=== PATIENT | male | born 1975 | race African-American/Black ===

== ENCOUNTER 2016-08-15 13:17 | Inpatient (IN) | payer OTHER ==
[2016-08-15 18:52] VITALS: BMI 23.0
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
[2016-08-15] MEDS ORDERED: P-EPHED 60MG/TRIPROLIDI 2.5MG TABLET PO PRN (20:42)
[2016-08-15] MEDS ORDERED: guaiFENesin/D-METHORPHAN HB 10 ML UNIT-DOSE CUPS PO PRN (20:42)
[2016-08-15] MEDS ORDERED: LOPERAMIDE HCL 2 MG CAPSULE PO PRN (20:42)
[2016-08-15] MEDS ORDERED: MAG HYDROX/AL HYDROX/SIMETH 30 ML UNIT-DOSE CUP PO PRN (20:42)
[2016-08-15] MEDS ORDERED: MAGNESIUM HYDROX 2400MG/30ML ORAL SUSPENSION 30 ML CUP PO PRN (20:42)
[2016-08-15] MEDS ORDERED: hydrOXYzine PAMOATE 50 MG CAPSULE (FP) PO PRN (20:42)
[2016-08-15] MEDS ORDERED: chlordiazePOXIDE HCL 25 MG CAPSULE PO ONE (20:42)
[2016-08-15] MEDS ORDERED: MAGNESIUM CITRATE 300 ML BOTTLE PO PRN (20:42)
[2016-08-15] MEDS ORDERED: MENTHOL/PHENOL 1 EACH UD MM PRN (20:42)
[2016-08-15] MEDS ORDERED: chlordiazePOXIDE HCL 25 MG CAPSULE PO PRN (20:42)
[2016-08-15] MEDS ORDERED: LORATADINE 10 MG TABLET PO SCH (20:45)
[2016-08-15] MEDS: THIAMINE HCL 100 MG TABLET (FP) PO SCH (22:52)
[2016-08-15] MEDS: diphenhydrAMINE HCL 50 MG CAPSULE PO PRN (22:53)
[2016-08-15] MEDS: chlordiazePOXIDE HCL 25 MG CAPSULE PO SCH (22:53)
[2016-08-15 23:08] LABS: URINE APPEARANCE CLEAR; URINE BILIRUBIN NEGATIVE (NEGATIVE); URINE COLOR LTYELLOW; URINE GLUCOSE (UA) NEGATIVE (NEGATIVE); URINE KETONE NEGATIVE (NEGATIVE); URINE NITRITE NEGATIVE (NEGATIVE); URINE PROTEIN NEGATIVE (NEGATIVE); URINE UROBILINOGEN NEGATIVE E.U./dl (0.2-1.0)
[2016-08-15 23:10] LABS: URINE BLOOD 1+ (NEGATIVE); URINE LEUK ESTERASE 1+ (NEGATIVE)
[2016-08-15 23:17] LABS: URINE HYALINE CAST 1 /lpf; URINE MUCUS RARE; URINE RBC 10 /hpf (0-3); URINE WBC 41 /hpf (3-5)
[2016-08-16] MEDS: chlordiazePOXIDE HCL 25 MG CAPSULE PO SCH ×4 (06:15→22:18)
[2016-08-16 10:21] LABS: MCHC 33.8 g/dl (32.0-35.9); MEAN CELL VOLUME 100.6 fl (80-96); MEAN PLT VOLUME 8.2 fl (7.5-11.1); PLATELET COUNT 255 K/MM3 (134-434); RDW 13.9 % (11.9-15.9); WHITE BLOOD COUNT 7.6 K/mm3 (4.0-10.0)
[2016-08-16] MEDS: PRENATAL VITAMINS W/ FOLIC ACID TABLET (FP) PO SCH (10:30)
[2016-08-16] MEDS: IBUPROFEN 400 MG TABLET (FP) PO PRN (10:32)
[2016-08-16 10:34] LABS: ALBUMIN 4.1 g/dl (3.4-5.0); ANION GAP 8 (8-16); CALCIUM 9.4 mg/dL (8.5-10.1); CO2 27 mmol/L (21-32); COCKROFT - GAULT 98.2; GLUCOSE,RANDOM 87 mg/dL (74-106); SGOT/AST 23 U/L (15-37); SGPT/ALT 24 U/L (12-78)
[2016-08-16 10:35] LABS: ALK PHOS 67 U/L (45-117); BILIRUBIN,TOTAL 0.5 mg/dL (0.2-1.0); TOT PROT 7.3 g/dl (6.4-8.2)
[2016-08-16] MEDS: ACETAMINOPHEN 325 MG TABLET (FP) PO PRN (15:24)
--- NOTE | 2016-08-16 16:18 | PN ---
S CIWA - CIWA Score Nausea/Vomitin Muscle Tremors: 2 Anxiety: 4-Mod. Anxious/Guarded Agitation: 3 Paroxysmal Sweats: 2 Orientation: 0-Oriented Tacttile Disturbances: 3-Moderate Itch/Numb/Burn Auditory Disturbances: 2-Mild Harshness/Frighten Visual Disturbances: 0-None Headache: 0-None Present CIWA-Ar Total Score: 18 BHS Progress Note (SOAP) Subjective: Interrupted sleep, Stomach Cramping, Body aches, Fatigue. Objective: PT. A & O X 3, OBSERVED AMBULATING ON UNIT WITH ASSISTANCE OF A CANE. 08/16/16 16:16 Vital Signs Temperature 98.6 F 08/16/16 13:26 Pulse Rate 74 08/16/16 13:26 Respiratory Rate 18 08/16/16 13:26 Blood Pressure 105/66 08/16/16 13:26 O2 Sat by Pulse Oximetry (%) Laboratory Last Values WBC 7.6 K/mm3 (4.0-10.0) 08/16/16 07:40 RBC 4.03 M/mm3 (4.00-5.60) 08/16/16 07:40 Hgb 13.7 GM/dL (11.7-16.9) 08/16/16 07:40 Hct 40.5 % (35.4-49) 08/16/16 07:40 MCV 100.6 fl (80-96) H 08/16/16 07:40 MCHC 33.8 g/dl (32.0-35.9) 08/16/16 07:40 RDW 13.9 % (11.9-15.9) 08/16/16 07:40 Plt Count 255 K/MM3 (134-434) 08/16/16 07:40 MPV 8.2 fl (7.5-11.1) 08/16/16 07:40 Sodium 140 mmol/L (136-145) 08/16/16 07:40 Potassium 4.2 mmol/L (3.5-5.1) 08/16/16 07:40 Chloride 105 mmol/L (98-107) 08/16/16 07:40 Carbon Dioxide 27 mmol/L (21-32) 08/16/16 07:40 Anion Gap 8 (8-16) 08/16/16 07:40 BUN 12 mg/dL (7-18) 08/16/16 07:40 Creatinine 1.0 mg/dL (0.7-1.3) 08/16/16 07:40 Creat Clearance w eGFR > 60 (>60) 08/16/16 07:40 Random Glucose 87 mg/dL (74-106) 08/16/16 07:40 Calcium 9.4 mg/dL (8.5-10.1) 08/16/16 07:40 Total Bilirubin 0.5 mg/dL (0.2-1.0) 08/16/16 07:40 AST 23 U/L (15-37) 08/16/16 07:40 ALT 24 U/L (12-78) 08/16/16 07:40 Alkaline Phosphatase 67 U/L (45-117) 08/16/16 07:40 Total Protein 7.3 g/dl (6.4-8.2) 08/16/16 07:40 Albumin 4.1 g/dl (3.4-5.0) 08/16/16 07:40 Urine Color Ltyellow 08/15/16 22:11 Urine Appearance Clear 08/15/16 22:11 Urine pH 5.0 (5.0-8.0) 08/15/16 22:11 Urine Protein Negative (NEGATIVE) 08/15/16 22:11 Urine Glucose (UA) Negative (NEGATIVE) 08/15/16 22:11 Urine Ketones Negative (NEGATIVE) 08/15/16 22:11 Urine Blood 1+ (NEGATIVE) H 08/15/16 22:11 Urine Nitrite Negative (NEGATIVE) 08/15/16 22:11 Urine Bilirubin Negative (NEGATIVE) 08/15/16 22:11 Urine Urobilinogen Negative E.U./dl (0.2-1.0) 08/15/16 22:11 Ur Leukocyte Esterase 1+ (NEGATIVE) H 08/15/16 22:11 Urine RBC 10 /hpf (0-3) 08/15/16 22:11 Urine WBC 41 /hpf (3-5) 08/15/16 22:11 Ur Epithelial Cells Moderate /hpf (FEW) 08/15/16 22:11 Hyaline Casts 1 /lpf 08/15/16 22:11 Urine Mucus Rare 08/15/16 22:11 RPR Titer Nonreactive (NONREACTIVE) 08/16/16 07:40 LABS NOTED. Assessment: 08/16/16 16:17 WITHDRAWAL SYMPTOMS. Plan: CONTINUE DETOX. ADVISED PATIENT TO FOLLOW-UP WITH C D STILL OPERATOR AFTER DISCHARGE FROM DETOX FOR GENERAL MEDICAL ASSESSMENT AND FOR ABNORMAL ADMISSION LAB VALUES.
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
[2016-08-16] MEDS: THIAMINE HCL 100 MG TABLET (FP) PO SCH (22:18)
[2016-08-16] MEDS: QUEtiapine FUMARATE 100 MG TABLET (FP) PO SCH (22:18)
[2016-08-17] MEDS: IBUPROFEN 400 MG TABLET (FP) PO PRN ×2 (03:24→17:36)
[2016-08-17] MEDS: chlordiazePOXIDE HCL 25 MG CAPSULE PO SCH ×3 (05:36→17:34)
[2016-08-17] MEDS: ACETAMINOPHEN 325 MG TABLET (FP) PO PRN (05:38)
[2016-08-17] MEDS: PRENATAL VITAMINS W/ FOLIC ACID TABLET (FP) PO SCH (10:22)
[2016-08-17] MEDS: SERTRALINE HCL 50 MG TABLET (FP) PO SCH (10:22)
--- NOTE | 2016-08-17 17:49 | PN ---
S CIWA - CIWA Score Nausea/Vomitin Muscle Tremors: 4-Moderate,w/Arms Extend Anxiety: 2 Agitation: 3 Paroxysmal Sweats: 2 Orientation: 0-Oriented Tacttile Disturbances: 2-Mild Itch/Numbness/Burn Auditory Disturbances: 0-None Visual Disturbances: 3-Moderate Sensitivity Headache: 0-None Present CIWA-Ar Total Score: 19 S Progress Note (SOAP) Subjective: Tremors, Interrupted sleep, Body aches. Objective: PT. A & O X 3, OBSERVED AMBULATING ON UNIT. 08/17/16 17:46 Vital Signs Temperature 96.6 F L 08/17/16 13:35 Pulse Rate 76 08/17/16 13:35 Respiratory Rate 20 08/17/16 13:35 Blood Pressure 123/81 08/17/16 13:35 O2 Sat by Pulse Oximetry (%) Laboratory Last Values WBC 7.6 K/mm3 (4.0-10.0) 08/16/16 07:40 RBC 4.03 M/mm3 (4.00-5.60) 08/16/16 07:40 Hgb 13.7 GM/dL (11.7-16.9) 08/16/16 07:40 Hct 40.5 % (35.4-49) 08/16/16 07:40 MCV 100.6 fl (80-96) H 08/16/16 07:40 MCHC 33.8 g/dl (32.0-35.9) 08/16/16 07:40 RDW 13.9 % (11.9-15.9) 08/16/16 07:40 Plt Count 255 K/MM3 (134-434) 08/16/16 07:40 MPV 8.2 fl (7.5-11.1) 08/16/16 07:40 Sodium 140 mmol/L (136-145) 08/16/16 07:40 Potassium 4.2 mmol/L (3.5-5.1) 08/16/16 07:40 Chloride 105 mmol/L (98-107) 08/16/16 07:40 Carbon Dioxide 27 mmol/L (21-32) 08/16/16 07:40 Anion Gap 8 (8-16) 08/16/16 07:40 BUN 12 mg/dL (7-18) 08/16/16 07:40 Creatinine 1.0 mg/dL (0.7-1.3) 08/16/16 07:40 Creat Clearance w eGFR > 60 (>60) 08/16/16 07:40 Random Glucose 87 mg/dL (74-106) 08/16/16 07:40 Calcium 9.4 mg/dL (8.5-10.1) 08/16/16 07:40 Total Bilirubin 0.5 mg/dL (0.2-1.0) 08/16/16 07:40 AST 23 U/L (15-37) 08/16/16 07:40 ALT 24 U/L (12-78) 08/16/16 07:40 Alkaline Phosphatase 67 U/L (45-117) 08/16/16 07:40 Total Protein 7.3 g/dl (6.4-8.2) 08/16/16 07:40 Albumin 4.1 g/dl (3.4-5.0) 08/16/16 07:40 Urine Color Ltyellow 08/15/16 22:11 Urine Appearance Clear 08/15/16 22:11 Urine pH 5.0 (5.0-8.0) 08/15/16 22:11 Ur Specific [place] 1.020 (1.005-1.025) 08/15/16 22:11 Urine Protein Negative (NEGATIVE) 08/15/16 22:11 Urine Glucose (UA) Negative (NEGATIVE) 08/15/16 22:11 Urine Ketones Negative (NEGATIVE) 08/15/16 22:11 Urine Blood 1+ (NEGATIVE) H 08/15/16 22:11 Urine Nitrite Negative (NEGATIVE) 08/15/16 22:11 Urine Bilirubin Negative (NEGATIVE) 08/15/16 22:11 Urine Urobilinogen Negative E.U./dl (0.2-1.0) 08/15/16 22:11 Ur Leukocyte Esterase 1+ (NEGATIVE) H 08/15/16 22:11 Urine RBC 10 /hpf (0-3) 08/15/16 22:11 Urine WBC 41 /hpf (3-5) 08/15/16 22:11 Ur Epithelial Cells Moderate /hpf (FEW) 08/15/16 22:11 Hyaline Casts 1 /lpf 08/15/16 22:11 Urine Mucus Rare 08/15/16 22:11 RPR Titer Nonreactive (NONREACTIVE) 08/16/16 07:40 LABS NOTED. PT. DENIES ANY UNUSUAL URINARY SYMPTOMS (BURNING, PAIN, FREQUENCY, INCONTINENCE) . VS STABLE. PT. AFEBRILE. 08/17/16 18:44 Assessment: 08/17/16 17:49 WITHDRAWAL SYMPTOMS. Plan: CONTINUE DETOX. REPEAT UA (PREVIOUS ABNORMAL RESULTS). ADVISED PATIENT TO FOLLOW-UP WITH MACHINE ENGRAVER AFTER DISCHARGE FROM DETOX FOR GENERAL MEDICAL ASSESSMENT AND FOR ABNORMAL ADMISSION LAB VALUES.
[2016-08-17] MEDS: chlordiazePOXIDE 5 MG CAPSULE PO SCH (22:24)
[2016-08-17] MEDS: THIAMINE HCL 100 MG TABLET (FP) PO SCH (22:24)
[2016-08-17] MEDS: diphenhydrAMINE HCL 50 MG CAPSULE PO PRN (22:24)
[2016-08-17] MEDS: QUEtiapine FUMARATE 100 MG TABLET (FP) PO SCH (22:27)
[2016-08-18] MEDS: chlordiazePOXIDE 5 MG CAPSULE PO SCH ×3 (05:52→16:57)
[2016-08-18 10:13] LABS: URINE APPEARANCE CLEAR; URINE BILIRUBIN NEGATIVE (NEGATIVE); URINE BLOOD NEGATIVE (NEGATIVE); URINE COLOR YELLOW; URINE GLUCOSE (UA) NEGATIVE (NEGATIVE); URINE KETONE NEGATIVE (NEGATIVE); URINE NITRITE NEGATIVE (NEGATIVE); URINE PROTEIN NEGATIVE (NEGATIVE); URINE UROBILINOGEN NEGATIVE E.U./dl (0.2-1.0)
[2016-08-18 10:16] LABS: URINE LEUK ESTERASE 2+ (NEGATIVE)
[2016-08-18] MEDS: SERTRALINE HCL 50 MG TABLET (FP) PO SCH (10:22)
[2016-08-18] MEDS: PRENATAL VITAMINS W/ FOLIC ACID TABLET (FP) PO SCH (10:22)
[2016-08-18] MEDS: IBUPROFEN 400 MG TABLET (FP) PO PRN (10:24)
[2016-08-18 11:04] LABS: URINE MUCUS RARE; URINE RBC 7 /hpf (0-3); URINE WBC 94 /hpf (3-5)
--- NOTE | 2016-08-18 13:05 | EKG ---
Test Reason : Blood Pressure : / mmHG Vent. Rate : 070 BPM Atrial Rate : 070 BPM P-R Int : 122 ms QRS Dur : 090 ms QT Int : 376 ms P-R-T Axes : 029 082 048 degrees QTc Int : 406 ms NORMAL SINUS RHYTHM MODERATE VOLTAGE CRITERIA FOR LVH, MAY BE NORMAL VARIANT NONSPECIFIC ST ABNORMALITY ABNORMAL ECG NO PREVIOUS ECGS AVAILABLE Confirmed by MANISH REYES MD ([id number]) on 08/18/2016 1:05:03 PM Referred By: Confirmed By:MANISH REYES MD
--- NOTE | 2016-08-18 13:05 | PN ---
BHS Progress Note (SOAP) Subjective: Sweating,interrupted sleep,restless Objective: 08/18/16 13:01 Vital Signs - 8 hr 08/18/16 08/18/16 06:24 09:23 Temperature 96.0 F L 96.7 F L Pulse Rate 70 72 Respiratory 18 18 Rate Blood Pressure 122/81 117/80 Urine Test Results Urine Color Yellow 08/18/16 08:20 Urine Appearance Clear 08/18/16 08:20 Urine pH 5.0 (5.0-8.0) 08/18/16 08:20 Ur Specific [place] 1.020 (1.005-1.025) 08/18/16 08:20 Urine Protein Negative (NEGATIVE) 08/18/16 08:20 Urine Glucose (UA) Negative (NEGATIVE) 08/18/16 08:20 Urine Ketones Negative (NEGATIVE) 08/18/16 08:20 Urine Blood Negative (NEGATIVE) 08/18/16 08:20 Urine Nitrite Negative (NEGATIVE) 08/18/16 08:20 Urine Bilirubin Negative (NEGATIVE) 08/18/16 08:20 Ur Leukocyte Esterase 2+ (NEGATIVE) H 08/18/16 08:20 Urine RBC 7 /hpf (0-3) 08/18/16 08:20 Urine WBC 94 /hpf (3-5) 08/18/16 08:20 Ur Epithelial Cells Rare /hpf (FEW) 08/18/16 08:20 Urine Mucus Rare 08/18/16 08:20 u/a is still abnormal with high wbc & leuk. est. Assessment: 08/18/16 13:02 Withdrawal sx. increase urine wbc Plan: Continue detox Bactrim DS BID
[2016-08-18] MEDS: SULFAMETHOXAZOLE/TRIMETHOPRIM 800MG/160MG D.S. TABLET PO SCH ×2 (13:43→22:24)
[2016-08-18] MEDS: chlordiazePOXIDE HCL 10 MG CAPSULE PO SCH (22:23)
[2016-08-18] MEDS: THIAMINE HCL 100 MG TABLET (FP) PO SCH (22:23)
[2016-08-18] MEDS: QUEtiapine FUMARATE 100 MG TABLET (FP) PO SCH (22:24)
[2016-08-19] MEDS: IBUPROFEN 400 MG TABLET (FP) PO PRN (02:35)
[2016-08-19] MEDS: chlordiazePOXIDE HCL 10 MG CAPSULE PO SCH (05:48)
[2016-08-19] MEDS: ACETAMINOPHEN 325 MG TABLET (FP) PO PRN (05:50)
[2016-08-19 06:34] VITALS: BP 125/85; PULSE 75; TEMP 95.2
--- NOTE | 2016-08-19 09:01 | DS ---
[facility] Detox Discharge Summary Admission Date: 08/15/16 Discharge Date: 08/19/16 - History Present History: Alcohol Dependence, Cannabis Dependence Additional Comments: DETOX COMPLETED. ALERT O X 3.NAD. Pertinent Past History: HX SEIZURE DEPRESSION - Physical Exam Results Vital Signs: Vital Signs Temperature 95.2 F L 08/19/16 06:33 Pulse Rate 75 08/19/16 06:33 Respiratory Rate 18 08/19/16 06:33 Blood Pressure 125/85 08/19/16 06:33 O2 Sat by Pulse Oximetry (%) Pertinent Admission Physical Exam Findings: WITHDRAWAL SX - Treatment Hospital Course: Detox Protocol Followed, Detoxed Safely, Responded well, Discharged Condition Good - Medication Discharge Medications: Ambulatory Orders Sertraline HCl [Zoloft -] 150 mg PO DAILY 08/15/16 Quetiapine Fumarate [Seroquel] 100 mg PO HS #30 tablet 08/16/16 Sertraline HCl [Zoloft -] 150 mg PO DAILY #60 tablet 08/16/16 - Diagnosis (1) Alcohol dependence with uncomplicated withdrawal Current Visit: Yes Status: Acute (2) Nicotine dependence Current Visit: Yes Status: Acute Qualifiers: Nicotine product type: cigarettes Substance use status: in withdrawal Qualified Code(s): F17.213 - Nicotine dependence, cigarettes, with withdrawal (3) Chronic pain Current Visit: Yes Status: Chronic (4) Insomnia Current Visit: Yes Status: Acute (5) Post traumatic stress disorder (PTSD) Current Visit: Yes Status: Chronic (6) Cannabis dependence Current Visit: Yes Status: Acute (7) Schizoaffective disorder Current Visit: Yes Status: Chronic - AMA Did Patient Leave Against Medical Advice: No
== END 2016-08-19 08:58 | disposition home or self-care (01) | DRG 897 ==
LOC: YASAS 13:17 → Y3N 20:57
PROVIDERS: ADMIT Internal Medicine Addiction Medicine; ATTEND Internal Medicine Addiction Medicine
PROC: HZ2ZZZZ Detoxification Services for Substance Abuse Treatment (ICD-10-PCS; principal; 2016-08-15)
DX: F19.230 Other psychoactive substance dependence with withdrawal, uncomplicated (principal); F10.230 Alcohol dependence with withdrawal, uncomplicated; F12.20 Cannabis dependence, uncomplicated; F17.213 Nicotine dependence, cigarettes, with withdrawal; F43.10 Post-traumatic stress disorder, unspecified; F25.9 Schizoaffective disorder, unspecified; G89.29 Other chronic pain; R82.90 Unspecified abnormal findings in urine; G47.00 Insomnia, unspecified; R26.9 Unspecified abnormalities of gait and mobility; Z86.69 Personal history of other diseases of the nervous system and sense organs; Z91.5 Personal history of self-harm
CPT/HCPCS: 36415; 80053; 81003; 81015; 85027; 86593; 93005; 93010